=== PATIENT | female | born 1985 | race Caucasian/White ===

== ENCOUNTER → 2020-12-03 | Outpatient (CLI) | payer OTHER ==
--- NOTE | 2020-12-03 09:47 | Diagnostic Imaging Report ---
PROCEDURE: US Gallbladder. TECHNIQUE: Multiple real-time grayscale images were obtained over the right upper quadrant in various projections. INDICATION: Right upper quadrant pain There are no prior studies available for comparison. There is no evidence for cholelithiasis or acute cholecystitis and the common bile duct is not dilated. The liver does not appear to be enlarged. There is no focal mass involving the liver. Spectral color-flow imaging of the portal vein shows the vein is patent. The right kidney is within normal limits. The pancreas, aorta and inferior vena cava show no sign of an acute abnormality. There is no mass or free fluid collection evident. IMPRESSION: 1. There is no acute abnormality of the right upper quadrant. 2. If clinical concern regarding an underlying abnormality of the gallbladder persists and further imaging is desired, nuclear medicine hepatobiliary scan would be recommended. Dictated by: Dictated on workstation # [id number]
== END ==
LOC: RAD 07:54
PROVIDERS: ATTEND Nurse Practitioner Family
DX: R10.11 Right upper quadrant pain (principal)
CPT/HCPCS: 76705